=== PATIENT | male | born 1995 | race Caucasian/White ===

== ENCOUNTER 2020-04-17 10:24 | Outpatient (REF) | payer MEDICAID, SELFPAY ==
[2020-04-21 17:22] LABS: Methylphenidate >2000 ng/mL; Ritalinic Acid >10000 ng/mL
[2020-04-24 07:50] LABS: Benzoylecgonine 429 ng/mL (Cutoff: 50); Cocaine Negative ng/mL (Cutoff: 50); Cocaine Interpretation Positive.
[2020-04-24 09:59] LABS: Codeine Negative ng/mL (Cutoff: 25); Dihydrocodeine Negative ng/mL (Cutoff: 25); Hydrocodone Negative ng/mL (Cutoff: 25); Hydromorphone Negative ng/mL (Cutoff: 25); Morphine Negative ng/mL (Cutoff: 25); Naloxone 2164 ng/mL (Cutoff: 25); Norhydrocodone Negative ng/mL (Cutoff: 25); Noroxycodone 471 ng/mL (Cutoff: 25); Noroxymorphone 66 ng/mL (Cutoff: 25); Opiates Interpretation Positive.
[2020-04-24 15:29] LABS: Buprenorphine 1080.5 ng/mL; Norbuprenorphine 923.8 ng/mL
== END 2020-04-17 10:44 ==
LOC: NCHCN 10:24
PROVIDERS: PCP Physician Assistant Medical; Visit Provider Physician Assistant
DX: F11.10 Opioid abuse, uncomplicated (principal)
CPT/HCPCS: 80307; 80360; 80361; 80353

== ENCOUNTER 2020-04-25 21:26 | Outpatient (REF) | payer MEDICAID, SELFPAY ==
[2020-04-28 11:51] LABS: Codeine Negative ng/mL (Cutoff: 25); Dihydrocodeine Negative ng/mL (Cutoff: 25); Hydrocodone Negative ng/mL (Cutoff: 25); Hydromorphone Negative ng/mL (Cutoff: 25); Morphine Negative ng/mL (Cutoff: 25); Naloxone 8781 ng/mL (Cutoff: 25); Norhydrocodone Negative ng/mL (Cutoff: 25); Noroxycodone Negative ng/mL (Cutoff: 25); Noroxymorphone 285 ng/mL (Cutoff: 25); Opiates Interpretation Positive.
[2020-04-28 14:14] LABS: Buprenorphine 1348.1 ng/mL
== END 2020-04-25 21:46 ==
LOC: NCHCN 21:26
PROVIDERS: PCP Physician Assistant Medical; Visit Provider Physician Assistant
DX: F11.20 Opioid dependence, uncomplicated (principal)
CPT/HCPCS: 80307; 80361

== ENCOUNTER 2020-07-26 14:23 | Outpatient (REF) | payer MEDICAID, SELFPAY ==
[2020-07-27 15:31] LABS: Chlamydia Result Negative (Negative); GC Result Negative (Negative)
== END 2020-07-26 14:43 ==
LOC: NCHCN 14:23
PROVIDERS: PCP Internal Medicine; Visit Provider Physician Assistant
DX: R30.0 Dysuria (principal)
CPT/HCPCS: 87491; 87591

== ENCOUNTER 2024-10-17 11:04 | Outpatient (REF) | payer MEDICAID, SELFPAY ==
[2024-10-17 14:42] LABS: HGB 15.1 g/dL (13.5-17.5); MCH 31.9 pg (27.0-33.0); MCHC 34.3 % (32.0-36.0); MCV 93 fL (80-95); MPV 9.6 fL (8.0-11.0); Platelet Count 194 10^3/uL (130-400); RBC 4.74 10^6/uL (4.36-5.78); RDW 12.2 % (11.8-14.1); WBC 4.61 10^3/uL (4.4-10.8)
[2024-10-17 15:06] LABS: ALT 39 U/L (16-63); AST 23 U/L (15-37); Albumin 4.1 g/dL (3.4-5.0); Alkaline Phosphatase 50 U/L (46-116); Anion Gap 6.5 mmol/L (3-11); BUN 8 mg/dL (7-18); Bilirubin, Total 0.8 mg/dL (0.2-1.0); CO2 31.5 mmol/L (21.0-32.0); CREATININE 1.1 mg/dL (0.70-1.30); Calcium 9.4 mg/dL (8.5-10.1); Calculated LDL 97 mg/dL (<100); Chloride 105 mmol/L (98-107); Cholesterol 174 mg/dL (<200); Estimated GFR 93.19 (mL/min/1.73m2); Glucose 90 mg/dL (74-106); HDL Cholesterol 61 mg/dL (>or=40); Sodium 143 mmol/L (136-145); Triglyceride 83 mg/dL (<150)
[2024-10-18 09:53] LABS: Hepatitis C Ab w Rflx HCV PCR Negative (Negative)
[2024-10-18 10:06] LABS: HIV-1/2 Ag & Ab Screen Negative (Negative)
== END 2024-10-17 11:05 | disposition home or self-care (01) ==
LOC: NCHCN 11:04
PROVIDERS: PCP Internal Medicine; Visit Provider Physician Assistant
DX: Z13.220 Encounter for screening for lipoid disorders (principal); A60.00 Herpesviral infection of urogenital system, unspecified; F11.20 Opioid dependence, uncomplicated
CPT/HCPCS: 80053; 80061; 85027; 86803; 87389